=== PATIENT | female | born 1960 | race Caucasian/White ===

== ENCOUNTER 2018-04-12 10:37 | Emergency (ER) | payer BC, OTHER ==
[2018-04-12] MEDS: IBUPROFEN 800 MG TAB PO (11:00)
[2018-04-12] MEDS: predniSONE 20 MG TAB PO (11:00)
[2018-04-12] MEDS: IPRATROPIUM 0.5MG/ALBUTEROL 2.5MG INH SOL UD 3ML (DUONEB)(J7620) NEB (11:12)
[2018-04-12] MEDS: ALBUTEROL SULFATE 2.5 MG/0.5 ML INH NEB SOLN NEB ×2 (11:12→11:26)
== END 2018-04-12 12:35 | disposition home or self-care (01) ==
LOC: M ED 10:37
DX: J45.901 Unspecified asthma with (acute) exacerbation (principal); J20.9 Acute bronchitis, unspecified; J44.9 Chronic obstructive pulmonary disease, unspecified; Z87.891 Personal history of nicotine dependence; Z79.899 Other long term (current) drug therapy; Z88.1 Allergy status to other antibiotic agents; Z88.0 Allergy status to penicillin; Z88.8 Allergy status to other drugs, medicaments and biological substances; Z91.89 Other specified personal risk factors, not elsewhere classified; Z91.040 Latex allergy status; Z91.013 Allergy to seafood
CPT/HCPCS: 71046

== ENCOUNTER → 2018-09-08 | Outpatient (REF) | payer OTHER ==
[2018-09-08 12:30] LABS: BASO # 0.1 10^3/uL (0.0-0.2); BASO % 1.5 % (0.0-1.0); EOS # 0.2 10^3/uL (0.0-0.50); EOS % 3.9 % (0.0-3.0); HEMATOCRIT 42.7 % (36.0-47.0); HEMOGLOBIN 13.5 g/dl (12.0-15.5); IMMATURE GRANULOCYTE % 0.5 % (0-3.0); LYMPH # 1.6 10^3/uL (1.5-4.5); LYMPH % 27.2 % (24.0-44.0); MEAN CORPUSCULAR HEMOGLOBIN 29.8 pg (27.0-33.0); MEAN CORPUSCULAR HGB CONC 31.6 g/dl (32.0-36.5); MEAN CORPUSCULAR VOLUME 94.3 fl (80.0-96.0); MONO # 0.5 10^3/uL (0.0-0.8); NEUTROPHILS # 3.4 10^3/uL (1.8-7.7); NEUTROPHILS % 58.9 % (36.0-66.0); PLATELET COUNT, AUTOMATED 229 10^3/uL (150-450); RED BLOOD COUNT 4.53 10^6/uL (4.00-5.40); RED CELL DISTRIBUTION WIDTH 13.4 % (11.5-14.5); WHITE BLOOD COUNT 5.8 10^3/uL (4.0-10.0)
[2018-09-08 12:57] LABS: ANION GAP 7 MEQ/L (8-16); BLOOD UREA NITROGEN 9 MG/DL (7-18); CALCIUM LEVEL 8.3 MG/DL (8.5-10.1); CARBON DIOXIDE LEVEL 28 MEQ/L (21-32); CHLORIDE LEVEL 110 MEQ/L (98-107); CHOLESTEROL LEVEL 170 MG/DL (<200); CHOLESTEROL RISK RATIO 3.035 (<5); CREATININE FOR GFR 0.71 MG/DL (0.55-1.30); GLOMERULAR FILTRATION RATE > 60.0 (>51); GLUCOSE, FASTING 101 MG/DL (70-100); HDL CHOLESTEROL 56 MG/DL (>40); LDL CHOLESTEROL 101 MG/DL (<100); NON-HDL-C 114 MG/DL; POTASSIUM SERUM 3.8 MEQ/L (3.5-5.1); SODIUM LEVEL 145 MEQ/L (136-145); TRIGLYCERIDES LEVEL 65 MG/DL (<150)
== END ==
LOC: M LABDRAW1 09:11
DX: Z00.00 Encounter for general adult medical examination without abnormal findings (principal); J30.9 Allergic rhinitis, unspecified
CPT/HCPCS: 80061

== ENCOUNTER → 2019-02-12 | Outpatient (REF) | payer OTHER ==
[~2019-02-12] MED LIST: ADV500INH INH; ALBU17IN2 INH; ALBU83IN NEB; BENA25CA2 PO; BREO1INH3; FLON1SPR; OMEP40CA2 PO; PATA0.6S; PRED20TA PO; SING10TA32 PO; TYLE325C PO
== END ==
LOC: M LABDRWAD 12:07
PROVIDERS: ATTEND Allergy & Immunology Allergy
DX: Z91.018 Allergy to other foods (principal)

== ENCOUNTER → 2021-04-29 | Outpatient (CLI) | payer OTHER ==
[~2021-04-29] MED LIST changes: +ALBU8.5H; -OMEP40CA2 PO; +OMEP40CA4 PO; +TYLE650T38 PO
== END ==
LOC: M LABSMTC 09:44
PROVIDERS: ATTEND Anesthesiology
DX: Z01.812 Encounter for preprocedural laboratory examination (principal)

== ENCOUNTER 2021-05-04 11:26 | Day surgery (SDC) | payer BC, OTHER ==
[~2021-05-04] VITALS: Ht 157.5 cm; Wt 90.0 kg
[2021-05-04] MEDS: NS 1,000 ML IV SCH ×2 (06:00→12:07)
[2021-05-04] MEDS ORDERED: propofoL 200 MG/20 ML VIAL As Ordered ONE (12:30)
[2021-05-04] MEDS ORDERED: fentaNYL 100 MCG/2 ML INJECTION (J3010) As Ordered ONE (12:30)
--- NOTE | 2021-05-04 12:53 | ROOR ---
Patient Name: Sara Rodrigez Procedure Date: 05/04/2021 12:39 PM Date of : 1960 Age: 61 Room: [facility] Gender: Female Note Status: Finalized Procedure: Upper GI endoscopy Indications: Epigastric abdominal pain, Heartburn Providers: Vinay Agosto MD Referring MD: Karen Dean MD Requesting Provider: Medicines: Monitored Anesthesia Care Complications: No immediate complications. Procedure: Pre-Anesthesia Assessment: - The heart rate, respiratory rate, oxygen saturations, blood pressure, adequacy of pulmonary ventilation, and response to care were monitored throughout the procedure. The Endoscope was introduced through the mouth, and advanced to the second part of duodenum. The upper GI endoscopy was accomplished without difficulty. The patient tolerated the procedure well. Findings: The examined esophagus was normal. Three 5 mm sessile fundic gland polyps were found in the gastric fundus and in the gastric body. The polyp was removed with a cold snare. Resection and retrieval were complete. The exam of the stomach was otherwise normal. The examined duodenum was normal. Impression: - Normal esophagus. - Three fundic gland polyps. Resected and retrieved. - The stomach is otherwise normal. - Normal examined duodenum. Recommendation: - Continue present medications. - Observe patient's clinical course. - Telephone endoscopist for pathology results in 2 weeks. Procedure Code(s): --- Professional --- 18170, Esophagogastroduodenoscopy, flexible, transoral; with removal of tumor(s), polyp(s), or other lesion(s) by snare technique Diagnosis Code(s): --- Professional --- R12, Heartburn R10.13, Epigastric pain K31.7, Polyp of stomach and duodenum CPT copyright 2019 [employer]. All rights reserved. The codes documented in this report are preliminary and upon vehicle dismantler review may be revised to meet current compliance requirements. Vinay Agosto MD Vinay Agotso MD 05/04/2021 12:53:29 PM Electronically signed by Vinay Agosto MD Number of Addenda: 0 Note Initiated On: 05/04/2021 12:39 PM Estimated Blood Loss: Estimated blood loss: none.
--- NOTE | 2021-05-04 13:13 | ROOR ---
Patient Name: Sara Rodrigez Procedure Date: 05/04/2021 12:40 PM Date of : 1960 Age: 61 Room: [facility] Gender: Female Note Status: Finalized Procedure: Colonoscopy Indications: Epigastric abdominal pain, Family history of colon cancer in a first-degree relative before age 60 years Providers: Vinay Agosto MD Referring MD: Karen Dean MD Requesting Provider: Medicines: Monitored Anesthesia Care Complications: No immediate complications. Procedure: Pre-Anesthesia Assessment: - The heart rate, respiratory rate, oxygen saturations, blood pressure, adequacy of pulmonary ventilation, and response to care were monitored throughout the procedure. The Colonoscope was introduced through the anus and advanced to 10 cm into the ileum. The colonoscopy was performed without difficulty. The patient tolerated the procedure well. The quality of the bowel preparation was good. Findings: The perianal and digital rectal examinations were normal. Two sessile polyps were found in the sigmoid colon. The polyps were diminutive in size. These polyps were removed with a cold snare. Resection and retrieval were complete. Mild sigmoid diverticulosis and small internal hemorrhoids. The exam was otherwise normal throughout the examined colon. The terminal ileum appeared normal. Impression: - Two diminutive polyps in the sigmoid colon, removed with a cold snare. Resected and retrieved. - Mild sigmoid diverticulosis and small internal hemorrhoids. - The colon is otherwise normal. - The examined portion of the ileum was normal. Recommendation: - Repeat colonoscopy in 5 years for screening purposes. Procedure Code(s): --- Professional --- 82972, Colonoscopy, flexible; with removal of tumor(s), polyp(s), or other lesion(s) by snare technique Diagnosis Code(s): --- Professional --- K63.5, Polyp of colon R10.13, Epigastric pain Z80.0, Family history of malignant neoplasm of digestive organs CPT copyright 2019 [employer]. All rights reserved. The codes documented in this report are preliminary and upon electrolytic de scaler review may be revised to meet current compliance requirements. Vniay Agosto MD Vinay Agosto MD 05/04/2021 1:13:13 PM Electronically signed by Vinay Agosto MD Number of Addenda: 0 Note Initiated On: 05/04/2021 12:40 PM Estimated Blood Loss: Estimated blood loss: none.
[2021-05-04 13:40] VITALS: BP 175/84
== END 2021-05-04 13:48 | disposition home or self-care (01) ==
LOC: M OPP 11:26
PROVIDERS: ATTEND Internal Medicine Gastroenterology
DX: K63.5 Polyp of colon (principal); K57.30 Diverticulosis of large intestine without perforation or abscess without bleeding; K64.8 Other hemorrhoids; R10.13 Epigastric pain; Z80.0 Family history of malignant neoplasm of digestive organs; K31.7 Polyp of stomach and duodenum; Z88.0 Allergy status to penicillin; Z88.1 Allergy status to other antibiotic agents; Z88.8 Allergy status to other drugs, medicaments and biological substances; Z91.040 Latex allergy status; Z91.013 Allergy to seafood
CPT/HCPCS: 43251; 45385; 88305; J3010

== ENCOUNTER → 2021-07-24 | Outpatient (CLI) | payer BC, OTHER ==
--- NOTE | 2021-07-24 09:44 | REP ---
INDICATION: EPIGASTRIC PAIN COMPARISON: None. TECHNIQUE: Real time burnham scale ultrasound examination using curved array transducer. FINDINGS: Liver demonstrates increased echotexture suggesting fatty infiltration. No focal hepatic lesions are identified. Pancreas is incompletely evaluated due to interposed bowel gas. The gallbladder is surgically absent. No biliary ductal dilatation is appreciated and the common bile duct measures 7.0 mm diameter. Right kidney is normal in reniform shape without hydronephrosis and measures 9.8 x 4.5 x 3.7 cm. No ascites in the visualized right upper quadrant. IMPRESSION: Prior cholecystectomy. Hepatosteatosis. Otherwise normal right upper quadrant ultrasound. <Electronically signed by Papa Colin > 07/24/21 [id number]
== END ==
LOC: M RAD 09:18
PROVIDERS: ATTEND Physician Assistant Medical
DX: K76.0 Fatty (change of) liver, not elsewhere classified (principal); R10.13 Epigastric pain

== ENCOUNTER → 2025-05-17 | Outpatient (CLI) | payer BC, OTHER ==
[~2025-05-17] MED LIST changes: -ADV500INH INH; +ADVA1AER10 INH; +ALBU2.5V10 NEB; -ALBU83IN NEB; +MONT-5 PO; -SING10TA32 PO
== END ==
LOC: M ADAMS 12:06
PROVIDERS: ATTEND Registered Nurse
DX: M79.672 Pain in left foot (principal); M77.32 Calcaneal spur, left foot; M19.072 Primary osteoarthritis, left ankle and foot